=== PATIENT | male | born 1960 | race Caucasian/White ===

== ENCOUNTER 2023-01-16 09:25 | Outpatient (OUT) | payer OTHER, SELFPAY ==
--- NOTE | 2023-01-16 09:44 | US_ITS ---
[address] [address] Patient Name: NEO KEMP MRN: [id number] date: 1960 Sex: M Assigned Patient Location: LAB Current Patient Location: LAB Accession/Order Number: [id number] Exam Date: 01/16/2023 09:45 Report Date: 01/16/2023 16:40 At the request of: LAMAR MAYER Procedure: US venous doppler UE LT EXAMINATION: US venous doppler UE LT HISTORY: Left Swollen Arm, Redness COMPARISON: No relevant comparison available. TECHNIQUE: Grayscale, color and Doppler FINDINGS: Region: Left arm Thrombus: None Flow: Normal Augmentation: Normal Other: The area the patient's redness a small amount of subcutaneous edema is observed US/US venous doppler UE LT IMPRESSION: No deep or superficial vein thrombus in the left arm Mild nonspecific subcutaneous edema in the area of the patient's swelling and redness *Exam performed in accordance with [facility] practice guidelines- Peripheral venous ultrasound, June 27, 2009. Electronically authenticated by: KATY KAY Date: 01/16/2023 16:40
[2023-01-16 10:03] LABS: Basophils Absolute Auto 0.1 10^3/uL (0.0-0.1); Basophils Percent Auto 0.3 % (0.2-2.0); Eosinophils Absolute Auto 0.1 10^3/uL (0.0-0.7); Eosinophils Percent Auto 0.7 % (0.9-7.0); Hematocrit 43.5 % (42.0-54.0); Hemoglobin 14.7 g/dL (14.0-18.0); Immature Granulocytes Abs Auto 0.07 10^3/uL (0.00-0.03); Immature Granulocytes Pct Auto 0.4 % (0.0-0.5); Lymphocytes Absolute Auto 1.8 10^3/uL (1.2-3.8); Lymphocytes Percent Auto 11.7 % (20.5-60.0); Mean Corpuscular HGB Conc 33.8 g/dL (29.9-35.2); Mean Corpuscular Hemoglobin 30.6 pg (25.9-34.0); Mean Corpuscular Volume 90.6 fL (80.0-94.0); Mean Platelet Volume 10.7 fL (9.5-13.5); Monocytes Absolute Auto 1.6 10^3/uL (0.3-0.8); Monocytes Percent Auto 10.3 % (1.7-12.0); Neutrophils Percent Auto 76.6 % (43.0-75.0); Platelet Count 179 10^3/uL (150-450); Red Cell Distribution Width 12.8 % (11.0-15.0); White Blood Count 15.7 10^3/uL (4.0-11.0)
[2023-01-16 11:24] LABS: Alanine Aminotransferase 28 U/L (16-63); Albumin Globulin Ratio 0.9; Albumin Level 3.6 g/dL (3.4-5.0); Alkaline Phosphatase 97 U/L (46-116); Anion Gap 12.7; Aspartate Amino Transferase 8 U/L (15-37); BUN Creatinine Ratio 16.4; Bilirubin Total 1.1 mg/dL (0.2-1.0); Calcium 8.9 mg/dL (8.5-10.1); Carbon Dioxide 25.4 mmol/L (21.0-32.0); Chloride 103 mmol/L (98-107); Estimated GFR (African America >60 (>=60); Estimated GFR (Non-African Ame 57 (>=60); Globulin 4.1 g/dL; Glucose 99 mg/dL (74-106); Potassium 4.1 mmol/L (3.5-5.1); Sodium 137 mmol/L (136-145); Total Protein 7.7 g/dL (6.4-8.2)
== END 2023-01-16 09:26 | disposition home or self-care (01) ==
LOC: LAB 09:30
PROVIDERS: PCP Family Medicine; Visit Provider Family Medicine
DX: M79.89 Other specified soft tissue disorders (principal); L53.9 Erythematous condition, unspecified
CPT/HCPCS: 36415; 80053; 93971

== ENCOUNTER 2025-03-07 10:03 | Outpatient (OUT) | payer MEDICARE, OTHER, SELFPAY ==
--- OUTSIDE RECORDS SUMMARY | 2025-03-07 10:12 | XMS_ITS | CCD ---
Author Organization [facility] Care Team Providers Care Diamond Driller Name Role Phone JAYME ., DR DORON Garcia Admitting Unavailable FAIR ., DR DORON Garcia Attending Unavailable FAIR ., DR DORON Garcia Consulting Unavailable FAIR ., DR DORON Garcia Admitting Unavailable FAIR ., DR DORON Garcia Attending Unavailable FAIR ., DR DORON Garcia Consulting Unavailable AmyMelani Primary Care Physician BRITANY CASSIDY Attending Unavailable JENS DEAL Referring Unavailable Alan Machado Primary Care Physician Giana Abarca Attending Unavailable BobbsArnulfo Referring Unavailable BobbsArnulfo Attending Unavailable BobbsArnulfo Attending Unavailable AmyMelani Attending Unavailable AmyMelani Admitting Unavailable Amy, Melani Mcclendon Attending Unavailable Amy, Melani Mcclendon Admitting Unavailable Amy, Melani Mcclendon Attending Unavailable BobbsArnulfo Attending Unavailable Allergies Allergy ClassificationReported Allergen(s)Allergy TypeDate of OnsetReaction(s) Facility (6 sources)Vancomycin; Translations: [vancomycin]Drug AllergyWeal (disorder) [facility] Medications Current Medications MedicationDrug Class(es)DatesSig (Normalized)Sig (Original)amoxicillin 875 mg / clavulanate 125 mg oral tablet (3 sources)Penicillin-class AntibacterialStart: 02-06-2023 End: 36-49-0571iwlc 1 tablet by mouth every twelve hoursamoxicillin-clavulanate 875 mg-125 mg Tab 1 tab(s), Oral, q12hr for 7 day(s), 14 tab(s), Refill(s) 0, [facility], 174.8, cm, 02/06/23 8:26:00 EST, Height/Length Dosing, 99.9, kg, 02/06/23 8:26:00 EST, Weight Dosing Start Date: 02/06/23 Stop Date: 02/13/23 Status: OrderedStart: 01-19-2023 End: 40-08-7320uama 1 tablet by mouth every twelve hoursAugmentin 875 mg oral tablet = 1 tab(s), Oral, q12hr, X 10 day(s), # 20 tab(s), Refills(s) 0, Ph[facility]: [facility], 174.8, cm, 01/17/23 9:12:00 EDT, Height/Length Dosing, 100.9, kg, 01/17/23 9:12:00 EDT, Weight Dosing Start Date: 01/19/23 Stop Date: 01/29/23 Status: Orderedatorvastatin 20 mg oral tablet (4 sources)HMG-CoA Reductase InhibitorStart: 67-42-2638tzgp 1 tablet by mouth once dailyatorvastatin 20 mg Tab See Instructions, TAKE ONE TABLET BY MOUTH ONCE DAILY, # 30 EA, Refills(s) 11, [facility], 174.8, cm, 02/13/23 7:45:00 EST, Height/Length Dosing, 100.5, kg, 02/13/23 7:45:00 EST, Weight Dosing Start Date: 01/05/24 Status: Ordered Quantity: 30.0 Unit: EA Repeat number: 1Start: 45-83-8905tzna 1 tablet by mouth once dailyatorvastatin 20 mg Tab 20 mg = 1 tab(s), Oral, Daily, # 30 tab(s), Refills(s) 11, [facility]: [facility], 174.8, cm, 12/08/22 8:21:00 EDT, Height/Length Dosing, 102.4, kg, 12/08/22 8:21:00 EDT, Weight Dosing Start Date: 12/08/22 Status: Orderedfidaxomicin 200 mg oral tablet (2 sources)Macrolide AntibacterialStart: 68-11-3755ekdi 1 tablet by mouth twice dailyfidaxomicin 200 mg oral tablet 200 mg = 1 tab(s), Oral, BID, # 20 tab(s), Refills(s) 0, Pharmacy: [facility], 174.8, cm, 02/08/23 11:44:00 EST, Height/Length Dosing, 99.6, kg, 02/08/23 11:44:00 EST, Weight Dosing Start Date: 02/08/23 Status: Orderedmeloxicam 15 mg oral tablet (4 sources)Nonsteroidal Anti-inflammatory DrugStart: 88-40-0457llvw 1 tablet by mouth once dailymeloxicam 15 mg Tab See Instructions, TAKE ONE TABLET BY MOUTH ONCE DAILY, # 30 EA, Refills(s) 7, Pharmacy: [facility], 174.8, cm, 02/13/23 7:45:00 EST, Height/Length Dosing, 100.5, kg, 02/13/23 7:45:00 EST, Weight Dosing Start Date: 01/05/24 Status: Ordered Quantity: 30.0 Unit: EA Repeat number: 1Start: 29-23-7164ohcf 1 tablet by mouth once dailymeloxicam 15 mg Tab 15 mg = 1 tab(s), Oral, Daily, # 30 tab(s), Refills(s) 11, [facility]: [facility], 174.8, cm, 12/08/22 8:21:00 EDT, Height/Length Dosing, 102.4, kg, 12/08/22 8:21:00 EDT, Weight Dosing Start Date: 12/08/22 Status: Ordered metroNIDAZOLE 500 mg oral tablet (2 sources)Nitroimidazole AntimicrobialStart: 02-08-2023 End: 85-99-8006ador 1 tablet by mouth every eight hoursMetroNIDAZOLE 500 mg Tab 500 mg = 1 tab(s), Oral, q8hr, X 10 day(s), # 30 tab(s), Refills(s) 0, Pharmacy: [facility], 174.8, cm, 02/08/23 11:44:00 EST, Height/Length Dosing, 99.6, kg, 02/08/23 11:44:00 EST, Weight Dosing Start Date: 02/08/23 Stop Date: 02/18/23 Status: Ordered Problems Problem ClassificationProblemDateDocumented DateEpisodic/ChronicDiseases of white blood cells (1 source)Leukocytosis; Translations: [Elevated white blood cell count, unspecified]Onset: 80-36-1986QydzyraLshlixbdj of lipid metabolism (2 sources)Hyperlipidemia; Translations: [Hyperlipidemia, unspecified]Onset: 09-50-3764DdxsfqwPrshmujlrv infection (2 sources)Clostridium difficile cnhucul97-48-0725ZescrfgzMpmulibjchmxit (1 source)Pofgpqcutkmdqo10-62-8335IutknhgOmzcc connective tissue disease (1 source)Disorder of bursa; Translations: [Bursopathy, unspecified]Onset: 04-61-8663FbyuluxqCyqfs non-traumatic joint disorders (2 sources)Disorder of ofgqe54-68-2604FixrdqheKuhus nutritional; endocrine; and metabolic disorders (1 source)Obesity; Translations: [Obesity, unspecified]Onset: 20-34-0097Gwxokqi Other skin disorders (3 sources)Swelling of upper yuf03-86-7866ErvpmzcuTtjg and subcutaneous tissue infections (3 sources)Cellulitis; Translations: [Cellulitis of unspecified part of limb] Onset: 90-10-3627GdkqqabbLkovhmain-related disorders (3 sources)Khjhmo22-00-4841OqkslooZrttoih on above:Added secondary to documentation in Social History.Unclassified (6 sources)Patient encounter [id number] Results Test NameValueInterpretationReference RangeFacilityAmbulatory Visit Summaryon 67-46-6459Tqhvhblzgy Visit SummaryAmbulatory Visit Summary NEO KEMP :1960 Visit Date:06/06/2022 Ambulatory Visit Instructions Your Care Team Primary Care Physician - Arnulfo Hancock DO This Is Your Medications List atorvastatin (atorvastatin 20 mg Tab) latanoprost ophthalmic (latanoprost Opth 0.005% Gricelda) meloxicam (meloxicam 15 mg Tab) Procedures Performed None. What to do next Scheduled Follow-Up Appointments Monday. 2025 7:20 AM EST With: Where: [address] [id number] 7:20 AM EDT With: Arnulfo Hancock DO Where: [address] [address]- You Need to Complete the Following CBC w/ Auto Diff, Blood, Routine collect, 02/11/25, Order for future visit, Lab Collect, HLD (hyperlipidemia) Impaired fasting glucose BMI 34.0-34.9,adult Class 1 obesity due to excess caloriesin adult, Not Required, Print Label By Order Location Comprehensive Metabolic Panel, Blood, Routine collect, 02/11/25, Order for future visit, Lab Collect, HLD (hyperlipidemia) Impaired fasting glucose BMI 34.0-34.9,adult Class 1 obesity due to excess calories in adult, Not Required, Print Label By Order Location HgbA1c, Blood, Routine collect, 02/11/25, Order for future visit, Lab Collect, HLD (hyperlipidemia) Impaired fasting glucose BMI 34.0-34.9,adult Class 1 obesity due to excess calories in adult Other obesity due to excess calories Screening for diabe... Lipid Panel, Blood, Routine collect, 02/11/25, Order for future visit, Lab Collect, HLD (hyperlipidemia) Impaired fasting glucose BMI 34.0-34.9,adult Class 1 obesity due to excess calories in adult Screening for hyperlipidemia, Required & Missing, Print La... PSA Screen, Total, Blood, Routine collect, 02/11/25, Order for future visit, Lab Collect, Screeningfor prostate cancer, Required & Missing, Print Label By Order Location Someone Will Contact You Regarding These Appointments [facility] [place] Ambulatory Referral, Referring provider preference, Orthopaedics, [facility]-Dr. Machado would like him to be seen [facility], 02/08/23 12:48:00 EST, Infection of left elbow Medications What How Much When Instructions Changed atorvastatin (atorvastatin 20 mg Tab) See instructions TAKE ONE TABLET BY MOUTH ONCE DAILY Changed meloxicam (meloxicam 15 mg Tab) See instructions TAKE ONE TABLET BY MOUTH ONCE DAILY Unchanged latanoprost ophthalmic (latanoprost Opth 0.005% Gricelda) APPLY ONE DROP TO AFFECTED EYE ONCE A DAY. AT BEDTIME Allergies vancomycin (Hives) Problems Ongoing - Any problem that you are currently receiving treatment for. BMI 34.0-34.9,adult Class 1 obesity due to excess calories in adult Colon cancer screening Glaucoma HLD (hyperlipidemia) Impaired fasting glucose MCFP (current) use of non-steroidal anti-inflammatories (NSAID) Osteoarthritis of left ankle Prostate cancer screening Right ankle pain Screening for diabetes mellitus Screening for hyperlipidemia Patient Survey You may receive a survey via text or e-mail asking about your office visit. Please share your experience with us by completing your survey. We appreciate your feedback and thank you for choosing us for your care. Patient Portal You may access all of your results and other medical record information on our secure patient portal. If you are not signed up for this yet, please contact [facility] at [phone] to get signed up today. Language Information Language assistance services are available as needed. [facility] Medicine Office/Clinic Noteon [id number] Medicine Office/Clinic NoteElizabeth [facility]Clinic Note HPI Staff Pt is presenting for 1 year checkup Health Maintenance: Colonoscopy: none Dexa: none PSA: PSA Scrn Tot.: 2.6 ng/mL (06/26/24 08:42:00) Last Labs: 06/26/24 - does this once a year in june Concerns: none Refills: not sure History of Present Illness Patient is a 65-year-old male with a past medical history of bilateral cataract s/p removal, BL glaucoma, hyperlipidemia, BL osteoarthritis of ankles and feet, and prior cellulitis (~3 years ago) without recurrence who presented today to establish care. Patient reported right ankle pain that began yesterday after working in his yard. Described as soreness without known trauma. He has been taking meloxicam for pain control. Patient reported chronic left ankle pain dating back ~50???55 years due to to prior injury which has been managed conservatively. For arthritis pain management, patient has been on meloxicam 15 mg daily for years, previously prescribed by Dr. Fair. Patient counseled today to use meloxicam PRN for flares and to try acetaminophen first; aware of potential renal/BP effects of chronic NSAID use. As for patient's ophthalmologic concerns, he follows with Dr. Reyes. He continues on latanoprost eye drops, started <1 year ago. Patient reported consistent overeating which is related to his current obesity. He stated he drinksunsweetened iced tea; no sugary beverages. He reported physically active throughout the day but no formal exercise. Labs reviewed from June 2024 showing a normal CBC. Labs also showed an elevated fasting blood glucose. PSA and TSH were within normal limits. Patient has never had colon cancer screening but is interested in getting a referral today. He denied family history of colon cancer, melena, hematochezia, and diarrhea. Patient denied alcohol, tobacco, and illicit drug use. Review of Systems PHQ Score Initial Depression Screen Score: 0 SCORE Pertinent review of systems is addressed in the HPI. Physical Exam Vitals & Measurements T: 36.6 ???C(Temporal Artery) HR: 84(Peripheral) RR: 18 BP: 118/86 SpO2: 97% HT: 69 in HT: 174.8 cm WT: 229.28 lb WT: 104.0 kg BMI: 34.04 General: Alert and oriented, in no acute distress HEENT: - Normocephalic, atraumatic - EOMI, conjunctiva WNL Cardiovascular: Regular rate and rhythm, no murmur/rubs/gallops Respiratory: Lungs clear to auscultation BL without wheezing/rales/rhonchi, normal respiratory effort Abdomen: Soft, nontender, nondistended Neurologic: Grossly intact, normal gait Skin: Warm, dry, intact; no rashes Psych: Normal mood, normal affect Assessment/Plan 1. HLD (hyperlipidemia) (E78.5: Hyperlipidemia, unspecified) Controlled Continue atorvastatin Reassess lipids with annual labs (June 2025). Ordered: CBC w/ Auto Diff Comprehensive Metabolic Panel HgbA1c Lipid Panel 2. Impaired fasting glucose (R73.01: Impaired fasting glucose) Hemoglobin a1c ordered. Ordered: CBC w/ Auto Diff Comprehensive Metabolic Panel HgbA1c Lipid Panel 3. Right ankle pain (M25.571: Pain in right ankle and joints of right foot) Acute; likely OA flare vs overuse injury Soreness started yesterday after increased activity; no swelling, deformity, or trauma reported. Conservative management with ice/heat as needed. Pain control with trial acetaminophen first; may take meloxicam PRN if inadequate relief 30???40 min later. Monitor symptoms; call clinic if worsening or not improving. 4. Osteoarthritis of left ankle (M19.072: Primary osteoarthritis, left ankle and foot) Chronic Continue podiatry follow-up as needed. Same analgesic plan as #3. 5. 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 Transition to PRN use only for significant pain flares. Use acetaminophen as first-line. Continue routine renal function monitoring with annual labs. 6. Glaucoma (H40.9: Unspecified glaucoma) Type unknown On latanoprost; follows with ophthalmology. 7. Prostate cancer screening (Z12.5: Encounter for screening for malignant neoplasm of prostate) PSA ordered Ordered: PSA Screen, Total 8. Colon cancer screening (Z12.11: Encounter for screening for malignant neoplasm of colon) GI referral placed. Ordered: [facility] [place] Internal Ambulatory Referral 9. Screening for hyperlipidemia (Z13.220: Encounter for screening for lipoid disorders) Lipid panel ordered. Ordered: Lipid Panel 10. Screening for diabetes mellitus (Z13.1: Encounter for screening for diabetes mellitus) Hemoglobin a1c ordered. Ordered: HgbA1c 11. BMI 34.0-34.9,adult (Z68.34: Body mass index [BMI] 34.0-34.9, adult) Patient's current BMI is 34.04 kg/m2, while the standard range for individuals aged 18 years old and older is >=18.5 to <25 kg/m2. We discussed the medical benefits of weight (more content not included)...[facility] CenterComment on above:Result Comment: Electronically Signed By: Arnulfo Hancock DO\.br\Date and Time Signed: 02/11/25 08:01 Ann-Marie 06-27-2024 RemindersReminders From: Melani Lazaro To: [facility] - Clinical; Sent: 06/27/2024 08:40:52 EDT Show up: 06/27/2024 08:41:00 EDT Subject: Ambulatory Reminder Due Date/Time: 06/28/2024 08:40:00 EDT BUN (kidney test) was a little elevated. Encourage him to drink more water. otherwise. labs look good Results: Date Result Name Ind Value Ref Range 06/26/2024 8:42 WBC 6.5 E9/L (4.0 - 11.0) 06/26/2024 8:42 RBC 5.0 E12/L (4.3 - 5.9) 06/26/2024 8:42 HGB 15.4 gm/dL (13.5 - 17.5) 06/26/2024 8:42 Hct 45.2 % (37.7 - 49.0) 06/26/2024 8:42 MCV 91.1 fL (80.0 - 100.0) 06/26/2024 8:42 MCH 31.0 pg (27.0 - 34.0) 06/26/2024 8:42 MCHC 34.0 gm/dL (31.4 - 36.0) 06/26/2024 8:42 RDW 13.4 % (10.9 - 14.2) 06/26/2024 8:42 Platelet 171.0 E9/L (150.0 - 500.0) 06/26/2024 8:42 MPV 9.8 fL (6.4 - 10.8) 06/26/2024 8:42 Neutro Auto 51.7 % (36.0 - 75.0) 06/26/2024 8:42 Lymph Auto 31.2 % (14.0 - 50.0) 06/26/2024 8:42 Buchanan Auto 12.3 % (4.0 - 14.0) 06/26/2024 8:42 Eos Auto 4.1 % (0.0 - 8.0) 06/26/2024 8:42 Basophil Auto 0.7 % (0.0 - 2.0) 06/26/2024 8:42 Neutro Absolute 3.3 E9/L (2.0 - 7.5) 06/26/2024 8:42 Lymph Absolute 2.0 E9/L (1.0 - 4.0) 06/26/2024 8:42 Buchanan Absolute 0.8 E9/L (0.2 - 1.0) 06/26/2024 8:42 Eos Absolute 0.3 E9/L (0.0 - 0.5) 06/26/2024 8:42 Basophil Absolute 0.0 E9/L (0.0 - 0.2) 06/26/2024 8:42 Glucose Lvl 107 mg/dL (55 - 199) 06/26/2024 8:42 BUN (H) 29 mg/dL (5 - 21) 06/26/2024 8:42 Creatinine 0.9 mg/dL (0.5 - 1.3) 06/26/2024 8:42 eGFR 95 mL/min/1.73 m2 (>=59 - ) 06/26/2024 8:42 BUN/Creat Ratio (H) 32 (10 - 20) 06/26/2024 8:42 Sodium Lvl 137 mmol/L (135 - 145) 06/26/2024 8:42 Potassium Lvl 4.2 mmol/L (3.5 - 5.3) 06/26/2024 8:42 Chloride 106 mmol/L (101 - 111) 06/26/2024 8:42 CO2 26 mmol/L (21 - 31) 06/26/2024 8:42 AGAP 9 mEq/L (6 - 16) 06/26/2024 8:42 Calcium Lvl 9.2 mg/dL (8.9 - 11.1) 06/26/2024 8:42 Alk Phos 97 Int._Unit/L (21 - 98) 06/26/2024 8:42 ALT 28 Int._Unit/L (6 - 46) 06/26/2024 8:42 AST 20 Int._Unit/L (5 - 43) 06/26/2024 8:42 Total Protein 7.0 gm/dL (6.0 - 7.8) 06/26/2024 8:42 Albumin Lvl 4.2 gm/dL (3.3 - 5.0) 06/26/2024 8:42 Globulin 2.8 gm/dL (1.4 - 4.0) 06/26/2024 8:42 A/G Ratio 1.5 (1.1 - 2.2) 06/26/2024 8:42 Bili Total 0.6 mg/dL (0.0 - 1.1) 06/26/2024 8:42 Chol 123 mg/dL (120 - 200) 06/26/2024 8:42 Trig 125 mg/dL ( - <=149) 06/26/2024 8:42 HDL 36 mg/dL 06/26/2024 8:42 LDL Direct 74 mg/dL ( - <=129) 06/26/2024 8:42 VLDL 25 mg/dL (7 - 40) 06/26/2024 8:42 TSH 1.18 mcIU/mL (0.34 - 5.60) 06/26/2024 8:42 PSA Scrn Tot. 2.6 ng/mL (0.1 - 3.5) From: Kyung Boone M.A. (B - Clinical) To: Melani Lazaro; Sent: 06/27/2024 09:33:37 EDT Show up: 06/27/2024 09:32:00 EDT Subject: RE: Ambulatory Reminder left detailed message (did identify self)[facility] w/ Auto Diffon [id number]/100 WBC (Bld)0.7 %Normal0.0-2.0[facility] HospitalComment on above:Performed By: #### [id number] #### [facility] [address] [place] [address] 28039Tvkfdbopx/Leukocytes Auto (Bld) [Pure # fraction]0.0 E9/LNormal 0.0-0.2FOur Lady of Mercy Hospital - AndersonComment on above:Performed By: #### [id number] #### [facility] [address] [place] [address] 10863Wskkwavatln (Bld) [#/Vol]0.3 E9/LNormal0.0-0.5FOur Lady of Mercy Hospital - AndersonComment on above:Performed By: #### [id number] #### [facility] [address] [place] [address] 43714Zldhmxsbeul/100 WBC (Bld)4.1 %Normal0.0-8.0[facility] HospitalComment on above:Performed By: #### [id number] #### [facility] [address] [place] [address] 76171Hobjwdovxei distribution width (RBC) [Ratio]13.4 %Normal 10.9-14.2FOur Lady of Mercy Hospital - AndersonComment on above:Performed By: #### [id number] #### [facility] [address] [place] [address] 43131Fynovzmchw (Bld) [Volume fraction]45.2 %Ohvvcl20.7-49.0[facility] HospitalComment on above:Performed By: #### [id number] #### [facility] [address] [place] [address] 22861Fumbyfagwu (Bld) [Mass/Vol]15.4 g/wCMhqiyk69.5-17.5FOur Lady of Mercy Hospital - AndersonComment on above:Performed By: #### [id number] #### [facility] [address] [place] [address] 78363Ohqaxnlcaip (Bld) [#/Vol]2.0 E9/LNormal1.0-4.0[facility] HospitalComment on above:Performed By: #### [id number] #### [facility] [address] [place] [address] 53837Zfwrpwmgwvp/100 WBC (Bld)31.2 %Itwkvd87.0-50.0[facility] HospitalComment on above:Performed By: #### [id number] #### [facility] [address] [place] [address] 12907NGK (RBC) [Entitic mass]31.0 ibPgjpln57.0-34.0[facility] HospitalComment on above:Performed By: #### [id number] #### [facility] [address] [place] [address] 38284CUQP (RBC) [Mass/Vol]34.0 g/nKXhjiik12.4-36.0[facility] HospitalComment on above:Performed By: #### [id number] #### [facility] [address] [place] [address] 02418NEA (RBC) [Entitic vol]91.1 xXVaopee18.0-100.0[facility] HospitalComment on above:Performed By: #### [id number] #### [facility] [address] [place] [address] 00209Xyrclpnrm (Bld) [#/Vol]0.8 E9/LNormal0.2-1.0[facility] HospitalComment on above:Performed By: #### [id number] #### [facility] [address] [place] [address] 40966Xzgsqweuugb (Bld) [#/Vol]3.3 E9/LNormal2.0-7.5FOur Lady of Mercy Hospital - AndersonComment on above:Performed By: #### [id number] #### [facility] [address] [place] [address] 74973Wvarqkkugmx/100 WBC (Bld)51.7 %Eqrvet42.0-75.0[facility] HospitalComment on above:Performed By: #### [id number] #### [facility] [address] [place] [address] 98602Cgmqzaqv mean volume (Bld) [Entitic vol]9.8 fLNormal6.4-10.8 [facility] HospitalComment on above:Performed By: #### [id number] #### [facility] [address] [place] [address] 44549Mxsxagycx (Bld) [#/Vol]171.0 E9/KHahrzw702.0-500.0[facility] HospitalComment on above:Performed By: #### [id number] #### [facility] [address] [place] [address] 56349NAC (Bld) [#/Vol]5.0 E12/LNormal4.3-5.9[facility] HospitalComment on above:Performed By: #### [id number] #### [facility] [address] [place] [address] 51853NXV corrected for nucl RBC Auto (Bld) [#/Vol]6.5 E9/LNormal 4.0-11.0[facility] HospitalComment on above:Performed By: #### [id number] #### [facility] [address] [place] [address] 94186DSSRGGEZPGohgjmh By: SYSTEM SYSTEM on 50-15-7434Jouegcj [Mass/Vol]4.2 g/dLNormal3.3 - 5.0 gm/dLRemisol ChemAlbumin/Globulin [Mass ratio] 1.5 {ratio}Normal1.1 - 2.2Remisol ChemALP [Catalytic activity/Vol]97 [iU]/d Ufgjzk15 - 98 Int._Unit/LRemisol ChemALT No additional P-5'-P [Catalytic activity/Vol]28 [iU]/dNormal6 - 46 Int._Unit/LRemisol ChemAnion gap [Moles/Vol]9 mmol/LNormal6 - 16 mEq/LRemisol ChemAST [Catalytic activity/Vol]20 [iU]/dNormal 5 - 43 Int._Unit/LRemisol ChemBilirubin [Mass/Vol]0.6 mg/dLNormal0.0 - 1.1 mg/dL Remisol ChemCalcium [Mass/Vol]9.2 mg/dLNormal8.9 - 11.1 mg/dLRemisol Chem Chloride [Moles/Vol]106 mmol/UAmspat144 - 111 mmol/LRemisol ChemCholesterol [Mass/Vol]123 mg/uFJhhfik734 - 200 mg/dLRemisol ChemCholesterol in HDL [Mass/Vol]36 mg/dLInvalid Interpretation CodeRemisol ChemComment on above:Result Comment: '>= 60 LOW RISK' '<= 40 HIGH RISK'Cholesterol in LDL [Mass/Vol]74 mg/dLNormal<=129mg/dLRemisol ChemCholesterol in VLDL [Mass/Vol]25 mg/dLNormal7 - 40 mg/dLRemisol ChemCO2 [Moles/Vol]26 mmol/NFlhokz15 - 31 mmol/LRemisol ChemCreatinine [Mass/Vol]0.9 mg/dLNormal0.5 - 1.3 mg/dLRemisol VstktDUS45 mL/min/1.73 g1Zhwkml>=59mL/min/1.73 p5Whbgreb ChemGlobulin (S) [Mass/Vol]2.8 g/dLNormal1.4 - 4.0 gm/dLRemisol Chem Glucose [Mass/Vol]107 mg/qBCgeuve14 - 199 mg/dLRemisol ChemPotassium [Moles/Vol] 4.2 mmol/LNormal3.5 - 5.3 mmol/LRemisol ChemProstate specific Ag [Mass/Vol]2.6 ng/mLNormal0.1 - 3.5 ng/mLRemisol ChemComment on above:Interpretive Data: The concentration of PSA determined by different manufacturers can vary due to di fferences in assay methods and reagent specificity. Values obtained from different assay methods cannot be used interchangeably. The methodology used for this result was chemiluminescence using [employer]'s Access Hybritech PSA reagent.Protein [Mass/Vol]7.0 g/dLNormal6.0 - 7.8 gm/dLRemisol ChemSodium [Moles/Vol]137 mmol/OUfiktf244 - 145 mmol/LRemisol ChemTriglyceride [Mass/Vol] 125 mg/dLNormal<=149mg/dLRemisol ChemTSH Qn1.18 m[IU]/LNormal0.34 - 5.60 mcIU/mL Remisol ChemUrea nitrogen [Mass/Vol]29 mg/dLHigh5 - 21 mg/dLRemisol ChemUrea nitrogen/Creatinine [Mass ratio]32 mg/nyAkih58 - 20Remisol ChemCMPon 06-26-2024 Albumin [Mass/Vol]4.2 g/dLNormal3.3-5.0[facility] HospitalComment on above:Performed By: #### [id number] #### [facility] [address] [place], [place] [address]Okhghxc/Globulin (S) [Mass conc ratio]1.7Xuhufk4.1-2.2FOur Lady of Mercy Hospital - AndersonComment on above:Performed By: #### [id number] #### [facility] [address] [place], [place] [address]HGE [Catalytic activity/Vol]97 Int._Unit/GZtreyy04-17WlfpedBrown Memorial HospitalComment on above:Performed By: #### [id number] #### [facility] [address] [place], [place] [address]EIZ No additional P-5'-P [Catalytic activity/Vol]28 Int._Unit/L Normal6-46[facility] HospitalComment on above:Performed By: #### [id number] #### [facility] [address] [place], [place] [address]Edbrj gap [Moles/Vol]9 mmol/LNormal6-16[facility] HospitalComment on above:Performed By: #### [id number] #### [facility] [address] [place], [place] [address]XSL [Catalytic activity/Vol]20 Int._Unit/LNormal5-43Brown Memorial HospitalComment on above:Performed By: #### [id number] #### [facility] [address], [place] [address]Rltgnjzjk [Mass/Vol]0.6 mg/dLNormal0.0-1.1FOur Lady of Mercy Hospital - AndersonComment on above:Performed By: #### [id number] #### [facility] [address], [place] [address]Koeshxq [Mass/Vol]9.2 mg/dLNormal8.9-11.1FOur Lady of Mercy Hospital - AndersonComment on above:Performed By: #### [id number] #### [facility] [address], [place] [address]Pjvdiyxu [Moles/Vol]106 mmol/DMwbupr707-611WiaaxpBrown Memorial HospitalComment on above:Performed By: #### [id number] #### [facility] [address], [place] [address]EF2 [Moles/Vol]26 mmol/FYmqgig87-00KmscelBrown Memorial Hospital Comment on above:Performed By: #### [id number] #### [facility] [address], [place] [address]Yaiyhiwwog [Mass/Vol]0.9 mg/dLNormal0.5-1.3FOur Lady of Mercy Hospital - AndersonComment on above:Performed By: #### [id number] #### [facility] [address], [place] [address]Nveawbac (S) [Mass/Vol]2.8 g/dLNormal1.4-4.0Brown Memorial HospitalComment on above:Performed By: #### [id number] #### [facility] [address], [place] [address]Edrxerj [Mass/Vol]107 mg/pZAepswj15-976YmbtmtBrown Memorial HospitalComment on above:Performed By: #### [id number] #### [facility] [address] [place] [address], [place] [address]Trqnppzsv [Moles/Vol]4.2 mmol/LNormal3.5-5.3FOur Lady of Mercy Hospital - AndersonComment on above:Performed By: #### [id number] #### [facility] [address], [place] [address]Ooopnae [Mass/Vol]7.0 g/dLNormal6.0-7.8Brown Memorial HospitalComment on above:Performed By: #### [id number] #### [facility] [address] [place] [address]Cjuxgt [Moles/Vol]137 mmol/UEnrrsm941-583PiucgnBrown Memorial HospitalComment on above:Performed By: #### [id number] #### [facility] [address] [place] [address]Wnqu nitrogen [Mass/Vol]29 mg/dLHigh5-21Brown Memorial HospitalComment on above:Performed By: #### [id number] #### [facility] [address], [place] [address]Tahn nitrogen/Creatinine [Mass ratio]32 No ZutnvRbyh71-10YpapqxBrown Memorial HospitalComment on above:Performed By: #### [id number] #### [facility] [address], [place] [address]VPPSVZSVGXGeidemj By: SYSTEM SYSTEM on 81-41-5279Lwvkvcroi/100 WBC (Bld)0.7 %Normal0.0 - 2.0 %Remisol HemeBasophils/Leukocytes Auto (Bld) [Pure # fraction]0.0 E9/LNormal0.0 - 0.2 E9/LRemisol HemeEosinophils (Bld) [#/Vol]0.3 E9/LNormal0.0 - 0.5 E9/LRemisol HemeEosinophils/100 WBC (Bld)4.1 %Normal0.0 - 8.0 %Remisol HemeErythrocyte distribution width (RBC) [Ratio]13.4 %Lcnxcz69.9 - 14.2 %Remisol HemeHematocrit (Bld) [Volume fraction]45.2 %Blzcuv91.7 - 49.0 % Remisol HemeHemoglobin (Bld) [Mass/Vol]15.4 g/pVDvvrna99.5 - 17.5 gm/dLRemisol HemeLymphocytes (Bld) [#/Vol]2.0 E9/LNormal1.0 - 4.0 E9/LRemisol Heme Lymphocytes/100 WBC (Bld)31.2 %Lhwrwu51.0 - 50.0 %Remisol HemeMCH (RBC) [Entitic mass]31.0 zuTxewqc67.0 - 34.0 pgRemisol HemeMCHC (RBC) [Mass/Vol]34.0 g/dL Gyfzdk06.4 - 36.0 gm/dLRemisol HemeMCV (RBC) [Entitic vol]91.1 aKNohtzr43.0 - 100.0 fLRemisol HemeMonocytes (Bld) [#/Vol]0.8 E9/LNormal0.2 - 1.0 E9/LRemisol HemeMonocytes/100 WBC (Bld)12.3 %Normal4.0 - 14.0 %Remisol HemeNeutrophils (Bld) [#/Vol]3.3 E9/LNormal2.0 - 7.5 E9/LRemisol HemeNeutrophils/100 WBC (Bld)51.7 % Lnknob15.0 - 75.0 %Remisol HemePlatelet mean volume (Bld) [Entitic vol]9.8 fL Normal6.4 - 10.8 fLRemisol HemePlatelets (Bld) [#/Vol]171.0 E9/LPgbogz372.0 - 500.0 E9/LRemisol HemeRBC (Bld) [#/Vol]5.0 E12/LNormal4.3 - 5.9 E12/LRemisol HemeWBC corrected for nucl RBC Auto (Bld) [#/Vol]6.5 E9/LNormal4.0 - 11.0 E9/L Remisol HemeLipid Panelon 84-54-9902Lpbylexzlef [Mass/Vol]123 mg/oNFqefpu022-196 [facility] HospitalComment on above:Performed By: #### [id number] #### [facility] [address] [place], [place] [address]Qpybailpsma in HDL [Mass/Vol]36 mg/dLInvalid Interpretation CodeBrown Memorial HospitalComment on above:Result Comment: '>= 60 LOW RISK' '<= 40 HIGH RISK'Performed By: #### [id number] #### [facility] [address] [place] [address], [place] [address]Bsenxmbillp in LDL [Mass/Vol]74 mg/dLNormal<=129Brown Memorial HospitalComment on above:Performed By: #### [id number] #### [facility] [address] [place], [place] [address]Wzxsysmwgob in VLDL [Mass/Vol]25 mg/dLNormal7-40Brown Memorial HospitalComment on above:Performed By: #### [id number] #### [facility] [address] [place] [address], [place] [address]Lppitvomfkin [Mass/Vol]125 mg/dLNormal<=149Brown Memorial HospitalComment on above:Performed By: #### [id number] #### [facility] [address] [place] [address], [place] [address]TPG Screen, Totalon 49-73-1690Eshhjnbe specific Ag [Mass/Vol] 2.6 ng/mLNormal0.1-3.5FOur Lady of Mercy Hospital - AndersonComment on above:Result Comment: The concentration of PSA determined by different manufacturers can vary due to differences in assay methods and reagent specificity. Values obtained from different assay methods cannot be used interchangeably. The methodology used for this result was chemiluminescence using [employer]'s Access Hybritech PSA reagent.Performed By: #### [id number] #### [facility] [address], [place] [address]RGZat [id number] Qn1.18 m[IU]/LNormal0.34-5.60Brown Memorial HospitalComment on above:Performed By: #### [id number] #### [facility] [address], [place] [address]nHWVrz 2626eHUS37 mL/min/1.73 d2Tcwwbs>=59Brown Memorial HospitalComment on above:Performed By: #### [id number] #### [facility] [address] [place] [address], [place] [address]QIXMUTJKRYMdlicjo By: SYSTEM SYSTEM on 25-58-1014Raprkgdml/100 WBC (Bld)0.5 %Normal0.0 - 2.0 %[facility] HemeAutoSSBasophils/Leukocytes Auto (Bld) [Pure # fraction]0.0 E9/LNormal0.0 - 0.2 E9/LFTMC HemeAutoSSEosinophils/100 WBC (Bld)3.1 %Normal0.0 - 8.0 %[facility] HemeAutoSSEosinophils/Leukocytes Auto (Bld) [Pure # fraction]0.3 E9/LNormal0.0 - 0.5 E9/LFTMC HemeAutoSSLymphocytes/100 WBC (Bld)16.9 %Zamcwl01.0 - 50.0 %[facility] HemeAutoSSLymphocytes/Leukocytes Auto (Bld) [Pure # fraction]1.6 E9/LNormal1.0 - 4.0 E9/LFT[facility] HemeAutoSSMonocytes/100 WBC (Bld)11.8 %Normal4.0 - 14.0 %[facility] HemeAutoSSMonocytes/Leukocytes Auto (Bld) [Pure # fraction]1.1 E9/LHigh0.2 - 1.0 E9/LFTMC HemeAutoSSNeutrophils/100 WBC (Bld)67.7 %Bztgxg85.0 - 75.0 %[facility] HemeAutoSSNeutrophils/Leukocytes Auto (Bld) [Pure # fraction]6.5 E9/LNormal2.0 - 7.5 E9/LFTMC HemeAutoSSHEMATOLOGYOrdered By: Skylar Avery on 69-87-7051Wctlewbgotl distribution width (RBC) [Ratio]13.2 % Tyrcgr47.9 - 14.2 %FT HemeAutoSSHematocrit (Bld) [Volume fraction]43.9 %Normal 37.7 - 49.0 %[facility] HemeAutoSSHemoglobin (Bld) [Mass/Vol]15.0 g/jOWosrnb64.5 - 17.5 gm/dLFTMC HemeAutoSSMCH (RBC) [Entitic mass]30.6 mwNomvzf07.0 - 34.0 pgFTMC HemeAutoSSMCHC (RBC) [Mass/Vol]34.1 g/hKLfdzzy60.4 - 36.0 gm/dLFTMC HemeAutoSS MCV (RBC) [Entitic vol]89.6 lFSwodmy16.0 - 100.0 fLFTMC HemeAutoSSPlatelet mean volume (Bld) [Entitic vol]9.5 fLNormal6.4 - 10.8 fLFTMC HemeAutoSSPlatelets (Bld) [#/Vol]212.0 E9/DXozbdy436.0 - 500.0 E9/LFT[facility] HemeAutoSSRBC (Bld) [#/Vol] 4.9 E12/LNormal4.3 - 5.9 E12/LFTMC HemeAutoSSWBC corrected for nucl RBC Auto (Bld) [#/Vol]9.5 E9/LNormal4.0 - 11.0 E9/L[facility] HemeAutoSSCHEMISTRYOrdered By: SYSTEM SYSTEM on 49-76-5896Hibua gap [Moles/Vol]13 mmol/LNormal6 - 16 mEq/LFT[facility] RemisolCalcium [Mass/Vol]8.9 mg/dLNormal8.9 - 11.1 mg/dLFTMC RemisolChloride [Moles/Vol]108 mmol/NSkpmbk324 - 111 mmol/LFT[facility] RemisolCO2 [Moles/Vol]20 mmol/L Low21 - 31 mmol/LFT[facility] RemisolCreatinine [Mass/Vol]1.1 mg/dLNormal0.5 - 1.3 mg/dL FT RemisolGFR/1.73 sq M.predicted among non-blacks MDRD (S/P/Bld) [Vol rate/Area]75 mL/min/1.73 n2Efldth>=59mL/min/1.73 m2FT Chem SComment on above: Interpretive Data: Chronic kidney disease could be indicated at eGFR's of less than 60 mL/min/1.73m2. Kidney failure is indicated at less than 15 mL/min/1.73m2.Glucose [Mass/Vol]101 mg/jGXbcwgd13 - 199 mg/dLFTMC RemisolComment on above:Interpretive Data: If this glucose result represents a fasting glucose, interpretation should referto the following reference range: 55-99 mg/dLLactate [Mass/Vol]1.2 mmol/LNormal0.5 - 2.2 mmol/LFT[facility] RemisolPotassium [Moles/Vol]3.9 mmol/LNormal3.5 - 5.3 mmol/LFT[facility] RemisolSodium [Moles/Vol]137 mmol/HBxetqt550 - 145 mmol/LFT[facility] RemisolUrea nitrogen [Mass/Vol]21 mg/dLNormal5 - 21 mg/dLFT[facility] RemisolUrea nitrogen/Creatinine [Mass ratio]19 mg/cuFjveua98 - 20 [facility] RemisolHEMATOLOGYOrdered By: SYSTEM SYSTEM on 64-55-1891Ixlzgludv/100 WBC (Bld)0.4 %Normal0.0 - 2.0 %[facility] HemeAutoSSBasophils/Leukocytes Auto (Bld) [Pure # fraction]0.0 E9/LNormal0.0 - 0.2 E9/LFT[facility] HemeAutoSSEosinophils/100 WBC (Bld) 0.9 %Normal0.0 - 8.0 %[facility] HemeAutoSSEosinophils/Leukocytes Auto (Bld) [Pure # fraction]0.1 E9/LNormal0.0 - 0.5 E9/LFT[facility] HemeAutoSSLymphocytes/100 WBC (Bld) 12.6 %Low14.0 - 50.0 %[facility] HemeAutoSSLymphocytes/Leukocytes Auto (Bld) [Pure # fraction]1.6 E9/LNormal1.0 - 4.0 E9/L[facility] HemeAutoSSMonocytes/100 WBC (Bld)10.5 %Normal4.0 - 14.0 %[facility] HemeAutoSSMonocytes/Leukocytes Auto (Bld) [Pure # fraction]1.3 E9/LHigh0.2 - 1.0 E9/L[facility] HemeAutoSSNeutrophils/100 WBC (Bld)75.6 %High36.0 - 75.0 %[facility] HemeAutoSSNeutrophils/Leukocytes Auto (Bld) [Pure # fraction]9.7 E9/LHigh2.0 - 7.5 E9/LFT[facility] HemeAutoSSHEMATOLOGYOrdered By: Mary Miller on 39-57-1310Dedokibltkz distribution width (RBC) [Ratio]13.1 %Bloccm41.9 - 14.2 %[facility] HemeAutoSSHematocrit (Bld) [Volume fraction]43.4 %Mzevab20.7 - 49.0 %[facility] HemeAutoSSHemoglobin (Bld) [Mass/Vol]14.9 g/dWUepqvi61.5 - 17.5 gm/dL [facility] HemeAutoSSMCH (RBC) [Entitic mass]30.5 ktAcpkrn73.0 - 34.0 pgFTMC HemeAutoSSMCHC (RBC) [Mass/Vol]34.2 g/cSPvbqvo74.4 - 36.0 gm/dLFTMC HemeAutoSS MCV (RBC) [Entitic vol]89.2 nRDwkvyl97.0 - 100.0 fLFTMC HemeAutoSSPlatelet mean volume (Bld) [Entitic vol]9.1 fLNormal6.4 - 10.8 fLFT[facility] HemeAutoSSPlatelets (Bld) [#/Vol]168.0 E9/ZScxyhp232.0 - 500.0 E9/L[facility] HemeAutoSSRBC (Bld) [#/Vol] 4.9 E12/LNormal4.3 - 5.9 E12/L[facility] HemeAutoSSWBC corrected for nucl RBC Auto (Bld) [#/Vol]12.8 E9/LHigh4.0 - 11.0 E9/L[facility] HemeAutoSSNo Panel Information Ordered By: ANGPROCESSSERVER MICROBIOLOGY on 69-51-3849Nwrnk Culture CharcoalNo growth at 2 days. Final to follow at 7 days.[facility] LimaBlood Culture CharcoalNo growth at 2 days. Final to follow at 7 days.[facility]HE[facility]IR CBC AUTO DIFFon [id number] #0.0 103/ulNormal 0.0-0.1The [facility] CenterComment on above:Performed By: #### HFPFCBC #### [facility] [address] [address] [address] Albino MontagueBasophils/100 WBC (Bld)0.6 %Normal0.2-2.0The [facility] Comment on above:Performed By: #### HFPFCBC #### [facility] [address] [place] [address] Dr. Albino Morgan #0.3 103/ulNormal0.0-0.7The [facility] CenterComment on above: Performed By: #### HFPFCBC #### [facility] [address] [address] [address] Albino Annaosinophils/100 WBC (Bld)4.5 %Normal0.9-7.0[facility] Comment on above:Performed By: #### HFPFCBC #### [facility] [address] [place] [address] Dr. Albino Annarythrocyte distribution width (RBC) [Ratio]12.6 %Ftpigk45.0-15.0 The [facility] CenterComment on above:Performed By: #### HFPFCBC #### [facility] [address] [place] [address] Dr. Albino MontagueHematocrit (Bld) [Volume fraction]46.4 %Hiftnr96.0-54.0The [facility] CenterComment on above:Performed By: #### HFPFCBC #### [facility] [address] [place] [address] Dr. Albino MontagueHemoglobin (Bld) [Mass/Vol]15.9 g/zDJcygkm01.0-18.0The [facility] CenterComment on above:Performed By: #### HFPFCBC #### [facility] [address] [place] [address] Dr. Albino Yang #0.02 10e3/ulNormal0.00-0.03The [facility] CenterComment on above:Performed By: #### HFPFCBC #### [facility] [address] [place] [address] Dr. Albino Yang %0.3 %Normal0.0-0.5The [facility] CenterComment on above: Performed By: #### HFPFCBC #### [facility] [address] [place] [address] Dr. Albino Aldana #1.9 103/ulNormal1.2-3.8The [facility] CenterComment on above:Performed By: #### ALECFCBC #### [facility] [address] [place] [address] Dr. Albino Patelhocytes/100 WBC (Bld)29.1 %Vcuast17.5-60.0The [facility] CenterComment on above:Performed By: #### ALECFCBC #### [facility] [address] [place] [address] Dr. Albino Foster (RBC) [Entitic mass]30.3 jvCjnsni87.9-34.0The [facility] CenterComment on above:Performed By: #### HFPFCBC #### [facility] [address] [place] [address] Dr. Albino Campos (RBC) [Mass/Vol]34.3 g/jKTdnscc16.9-35.2The [facility] CenterComment on above:Performed By: #### HFPFCBC #### [facility] [address] [place] [address] Dr. Albino Irving (RBC) [Entitic vol]88.4 nLQpgqqz46.0-94.0The [facility] CenterComment on above:Performed By: #### HFPFCBC #### [facility] [address] [place] [address] Dr. Albino Farnsworth #0.7 103/ulNormal0.3-0.8The [facility] CenterComment on above:Performed By: #### HFPFCBC #### [facility] [address] [place] [address] Dr. Albino Brinkocytes/100 WBC (Bld)11.0 %Normal1.7-12.0The [facility] Comment on above:Performed By: #### HFPFCBC #### [facility] [address] [place] [address] Dr. Albino Roth #3.5 103/ulNormal1.4-6.5The [facility] HospitalComment on above:Performed By: #### HFPFCBC #### [facility] [address] [place] [address] Dr. Albino Montesutrophils/100 WBC (Bld)54.5 %Tgugek29.0-75.0The [facility] CenterComment on above:Performed By: #### HFPFCBC #### [facility] [address] [place] [address] Dr. Albino Ramirez mean volume (Bld) [Entitic vol]10.6 fLNormal9.5-13.5The [facility] CenterComment on above:Performed By: #### HFPFCBC #### [facility] [address] [place] [address] Dr. Albino MontaguePLT205 103/aoHkygro508-353Bkg [facility] CenterComment on above: Performed By: #### HFPFCBC #### [facility] [address] [place] [address] Dr. Albino MontagueRBC5.25 106/ulNormal4.70-6.10The [facility] CenterComment on above:Performed By: #### HFPFCBC #### [facility] [address] [place] [address] Dr. Albino MontagueWBC6.4 103/ulNormal4.0-11.0The [facility] CenterComment on above: Performed By: #### HFPFCBC #### [facility] [address] [address] [address] Albino FIELD GLYCOHEMOGLOBIN A1Con 42-40-8558Ygnqqar [Mass/Vol]105 mg/dLNormalThe [facility] CenterComment on above:Performed By: #### [id number] #### [facility] [address] [address] [address] Albino MontagueHbA1c (Bld) [Mass fraction]5.3 %Normal4.5-6.2The [facility] CenterComment on above:Performed By: #### [id number] #### [facility] [address] [address] [address] Albino DickinsonIR PROFILE (MALE)on 12-59-8988Ibylpwh [Mass/Vol]4.0 g/dL Normal3.4-5.0The [facility] CenterComment on above:Performed By: #### HFPFM #### [facility] [address] [place] [address] Dr. Albino MontagueAlbumin/Globulin [Mass ratio]1.3 {ratio}NormalThe [facility] CenterComment on above:Performed By: #### HFPFM #### [facility] [address] [place] [address] Dr. Albino Huffman [Catalytic activity/Vol]104 U/QWydezy32-563Cqg [facility] CenterComment on above:Performed By: #### HFPFM #### [facility] [address] [place] [address] Dr. Albino Dan [Catalytic activity/Vol]36 U/THetdoi03-15Mnr [facility] CenterComment on above:Performed By: #### HFPFM #### [facility] [address] [place] [address] Dr. Albino Valentin [Catalytic activity/Vol]22 U/DAldllo41-82Wnp [facility] on above:Performed By: #### HFPFM #### [facility] [address] [place] [address] Dr. Albino MontagueBilirubin [Mass/Vol]0.7 mg/dLNormal0.2-1.0The [facility] Comment on above:Performed By: #### HFPFM #### [facility] [address] [address] [address] Albino MontagueCalcium [Mass/Vol]9.0 mg/dLNormal8.5-10.1The [facility] Comment on above:Performed By: #### HFPFM #### [facility] [address] [address] [address] Albino MontagueChloride [Moles/Vol]105 mmol/RTvnswp56-134Bpx [facility] Comment on above:Performed By: #### HFPFM #### [facility] [address] [address] [address] Albino MontagueCHOL-HDL RATIO NORMSSumma HealthComment on above:Result Comment: 3.3 - 4.4 LOW RISK 4.4 - 7.1 AVERAGE RISK 7.1 - 11.0 MODERATE RISK >11.0 HIGH RISKPerformed By: #### HFPFM #### [facility] [address] [address] [address] Albino Nettlesesterol [Mass/Vol]118 mg/dLNormal<=200[facility] Comment on above:Performed By: #### HFPFM #### [facility] [address] [address] [address] Albino MontagueCholesterol in HDL [Mass/Vol]35 mg/dLCritically nog60-78YziMercy Health Perrysburg HospitalComment on above:Performed By: #### HFPFM #### [facility] [address] [address] [address] Albino MontagueCholesterol in LDL [Mass/Vol]52.6 mg/dLWright-Patterson Medical CenterComment on above:Performed By: #### HFPFM #### [facility] [address] [place] [address] Dr. Albino Nettlesesterramón.total/Cholesterol in HDL [Mass ratio]3.4 {ratio} NormalMercy Health Perrysburg HospitalComment on above:Performed By: #### HFPFM #### [facility] [address] [address] [address] Albino MontagueCO2 [Moles/Vol]25.5 mmol/JUxhxfz91.0-32.0[facility] Comment on above:Performed By: #### HFPFM #### [facility] [address] [place] [address] Dr. Albino MontagueCreatinine [Mass/Vol]1.02 mg/dLNormal0.70-1.30[facility] HospitalComment on above:Performed By: #### HFPFM #### [facility] [address] [address] [address] Albino MontagueGlobulin (S) [Mass/Vol]3.2 g/dLWright-Patterson Medical CenterComment on above:Performed By: #### HFPFM #### [facility] [address] [place] [address] Dr. Albino MontagueGlucose [Mass/Vol]102 mg/uCKtfvtq91-050BlrMercy Health [facility] Hospital Comment on above:Performed By: #### HFPFM #### [facility] [address] [place] [address] Dr. Albino MontagueHDL NORMAL> or = 60 mg/dl - LOW CARDIOVASCULAR RISK <40 mg/dl - HIGH CARDIOVASCULAR RISKWright-Patterson Medical CenterComment on above:Performed By: #### HFPFM #### [facility] [address] [place] [address] Dr. Albino MontagueLDL CALC NORMALSEE BELOWWright-Patterson Medical CenterComment on above:Result Comment: <100 mg/dl OPTIMAL 100 - 129 mg/dl NEAR OR ABOVE OPTIMAL 130 - 159 mg/dl BORDERLINE HIGH 160 - 189 mg/dl HIGH >190 mg/dl VERY HIGH Performed By: #### HFPFM #### [facility] [address] [place] [address] Dr. Albino MontaguePotassium [Moles/Vol]4.5 mmol/LNormal3.5-5.1[facility] Comment on above:Performed By: #### HFPFM #### [facility] [address] [place] [address] Dr. Albino MontagueProtein [Mass/Vol]7.2 g/dLNormal6.4-8.2The [facility] Comment on above:Performed By: #### HFPFM #### [facility] [address] [place] [address] Dr. Albino Esquiveldium [Moles/Vol]140 mmol/CMwdazt064-725Qcr [facility] Comment on above:Performed By: #### HFPFM #### [facility] [address] [place] [address] Dr. Albino MontagueTriglyceride [Mass/Vol]152 mg/dLCritically high<=150The [facility] CenterComment on above:Performed By: #### HFPFM #### [facility] [address] [place] [address] Dr. Albino MontagueTSH0.890 uIU/mLNormal0.358-3.740The [facility] CenterComment on above:Performed By: #### HFPFM #### [facility] [address] [place] [address] Dr. Albino Moctezuma nitrogen [Mass/Vol]23.0 mg/dLCritically high7.0-18.0The [facility] CenterComment on above:Performed By: #### HFPFM #### [facility] [address] [place] [address] Dr. Albino Moctezuma nitrogen/Creatinine [Mass ratio]22.5 mg/mgNoSelect Medical Specialty Hospital - TrumbullComment on above:Performed By: #### HFPFM #### [facility] [address] [place] [address] Dr. Albino MontagueVLDL CALC30.4 mg/dLNoSelect Medical Specialty Hospital - TrumbullComment on above: Performed By: #### HFPFM #### [facility] [address] [place] [address] Dr. Albino Ellison FAIR CBC AUTO DIFFon 53-48-1333FOEV #0.1 103/ulNormal 0.0-0.1The [facility] CenterComment on above:Performed By: #### HFPFCBC #### [facility] [address] [place] [address] Dr. Yilan ChangBasophils/100 WBC (Bld)0.7 %Normal0.2-2.0The [facility] Comment on above:Performed By: #### HFPFCBC #### [facility] [address] [place] [address] Dr. Albino Morgan #0.3 103/ulNormal0.0-0.7The [facility] CenterComment on above: Performed By: #### HFPFCBC #### [facility] [address] [place] [address] Dr. Albino Annaosinophils/100 WBC (Bld)4.1 %Normal0.9-7.0The [facility] Comment on above:Performed By: #### DONOVANBC #### [facility] [address] [place] [address] Dr. Albino Annarythrocyte distribution width (RBC) [Ratio]12.4 %Iphxot79.0-15.0 The [facility] CenterComment on above:Performed By: #### DONOVANBC #### [facility] [address] [place] [address] Dr. Albino MontagueHematocrit (Bld) [Volume fraction]46.2 %Iyvwml62.0-54.0The [facility] CenterComment on above:Performed By: #### DONOVANBC #### [facility] [address] [place] [address] Dr. Albino MontagueHemoglobin (Bld) [Mass/Vol]15.5 g/wFSvkkyd97.0-18.0The [facility] CenterComment on above:Performed By: #### HFPFCBC #### [facility] [address] [place] [address] Dr. Albino Yang #0.02 10e3/ulNormal0.00-0.03The [facility] CenterComment on above:Performed By: #### HFPFCBC #### [facility] [address] [place] [address] Dr. Albino Yang %0.3 %Normal0.0-0.5The [facility] CenterComment on above: Performed By: #### HFPFCBC #### [facility] [address] [place] [address] Dr. Albino Aldana #2.1 103/ulNormal1.2-3.8The [facility] [facility]wood [facility] CenterComment on above:Performed By: #### HFPFCBC #### [facility] [address] [place] [address] Dr. Albino Rousemphocytes/100 WBC (Bld)28.8 %Egmisw01.5-60.0The [facility] HospitalComment on above:Performed By: #### HFPFCBC #### [facility] [address] [place] [address] Dr. Albino Foster (RBC) [Entitic mass]30.4 jbGgekdi26.9-34.0The [facility] CenterComment on above:Performed By: #### HFPFCBC #### [facility] [address] [place] [address] Dr. Albino Campos (RBC) [Mass/Vol]33.5 g/kYUtvesg99.9-35.2The [facility] CenterComment on above:Performed By: #### HFPFCBC #### [facility] [address] [place] [address] Dr. Albino Irving (RBC) [Entitic vol]90.6 wKSshrkz56.0-94.0The [facility] CenterComment on above:Performed By: #### HFPFCBC #### [facility] [address] [place] [address] Dr. Albino Farnsworth #0.8 103/ulNormal0.3-0.8The [facility] CenterComment on above:Performed By: #### HFPFCBC #### [facility] [address] [place] [address] Dr. Albino Brinkocytes/100 WBC (Bld)10.7 %Normal1.7-12.0The [facility] Comment on above:Performed By: #### HFPFCBC #### [facility] [address] [place] [address] Dr. Yilan ChangNEUT #4.0 103/ulNormal1.4-6.5The [facility] CenterComment on above:Performed By: #### HFPFCBC #### [facility] [address] [place] [address] Dr. Albino Montesutrophils/100 WBC (Bld)55.4 %Dhdyfu01.0-75.0The [facility] CenterComment on above:Performed By: #### HFPFCBC #### [facility] [address] [place] [address] Dr. Albino MontaguePlatelet mean volume (Bld) [Entitic vol]10.5 fLNormal9.5-13.5The [facility] CenterComment on above:Performed By: #### HFPFCBC #### [facility] [address] [place] [address] Dr. Albino MontaguePLT203 103/lwWgbevj938-894Wxz [facility] CenterComment on above: Performed By: #### HFPFCBC #### [facility] [address] [place] [address] Dr. Albino MontagueRBC5.10 106/ulNormal4.70-6.10The [facility] CenterComment on above:Performed By: #### HFPFCBC #### [facility] [address] [place] [address] Dr. Albino MontagueWBC7.3 103/ulNormal4.0-11.0The [facility] CenterComment on above: Performed By: #### HFPFCBC #### [facility] [address] [place] [address] Dr. Albino Ellison [facility] GLYCOHEMOGLOBIN A1Con 46-83-4661Wjttvws [Mass/Vol]114 mg/dLNoSelect Medical Specialty Hospital - TrumbullComment on above:Performed By: #### GLTDC4D #### [facility] [address] [place] [address] Dr. Albino MontagueHbA1c (Bld) [Mass fraction]5.6 %Normal<=6.0The [facility] Comment on above:Performed By: #### PEZHA0Q #### [facility] [address] [address] [address] Albino MontagueHEALTHFAIR PROFILE (MALE)on [id number] [Mass/Vol]4.1 g/dL Normal3.5-5.0The [facility] CenterComment on above:Performed By: #### HFPFM #### [facility] [address] [place] [address] Dr. Albino MontagueAlbumin/Globulin [Mass ratio]1.4 {ratio}NormalThe [facility] CenterComment on above:Performed By: #### HFPFM #### [facility] [address] [place] [address] Dr. Albino SierraP [Catalytic activity/Vol]98 U/YBkreuo75-673Lak [facility] CenterComment on above:Performed By: #### HFPFM #### [facility] [address] [place] [address] Dr. Albino SierraT [Catalytic activity/Vol]47 U/QNmxcjj03-45Ltw [facility] CenterComment on above:Performed By: #### HFPFM #### [facility] [address] [place] [address] Dr. Albino MontagueAST [Catalytic activity/Vol]23 U/AKtfnrb24-24Xzf [facility] CenterComment on above:Performed By: #### HFPFM #### [facility] [address] [place] [address] Dr. Albino MontagueBilirubin [Mass/Vol]0.8 mg/dLNormal0.2-1.3The [facility] Comment on above:Performed By: #### HFPFM #### [facility] [address] [place] [address] Dr. Albino MontagueCalcium [Mass/Vol]8.7 mg/dLNormal8.4-10.2The [facility] Comment on above:Performed By: #### HFPFM #### [facility] [address] [place] [address] Dr. Albino MontagueChloride [Moles/Vol]103 mmol/ZEovkgh96-745Zja [facility] Comment on above:Performed By: #### HFPFM #### [facility] [address] [address] [address] Albino MontagueCHOL-HDL RATIO NORMSSumma HealthComment on above:Result Comment: 3.3 - 4.4 LOW RISK 4.4 - 7.1 AVERAGE RISK 7.1 - 11.0 MODERATE RISK >11.0 HIGH RISKPerformed By: #### HFPFM #### [facility] [address] [address] [address] Albino MontagueCholesterol [Mass/Vol]131 mg/dLNormal<=200[facility] Comment on above:Performed By: #### HFPFM #### [facility] [address] [place] [address] Dr. Albino MontagueCholesterol in HDL [Mass/Vol]38 mg/dLWright-Patterson Medical Center Comment on above:Performed By: #### HFPFM #### [facility] [address] [place] [address] Dr. Albino MontagueCholesterol in LDL [Mass/Vol]58.8 mg/dLWright-Patterson Medical CenterComment on above:Performed By: #### HFPFM #### [facility] [address] [place] [address] Dr. Albino Nettlesesterramón.total/Cholesterol in HDL [Mass ratio]3.4 {ratio} NormalMercy Health Perrysburg HospitalComment on above:Performed By: #### HFPFM #### [facility] [address] [place] [address] Dr. Albino MontagueCO2 [Moles/Vol]25.9 mmol/PLgwapq73.0-30.0[facility] Comment on above:Performed By: #### HFPFM #### [facility] [address] [place] [address] Dr. Albino MontagueCreatinine [Mass/Vol]1.10 mg/dLNormal0.66-1.25ThKettering Memorial HospitalComment on above:Performed By: #### HFPFM #### [facility] [address] [place] [address] Dr. Albino MontagueGlobulin (S) [Mass/Vol]2.9 g/dLWright-Patterson Medical CenterComment on above:Performed By: #### HFPFM #### [facility] [address] [place] [address] Dr. Albino MontagueGlucose [Mass/Vol]99 mg/yMUocmyk76-069ZoaMercy Health [facility] Hospital Comment on above:Performed By: #### HFPFM #### [facility] [address] [place] [address] Dr. Albino eNwell NORMAL> or = 60 mg/dl - LOW CARDIOVASCULAR RISK <40 mg/dl - HIGH CARDIOVASCULAR RISKWright-Patterson Medical CenterComment on above:Performed By: #### HFPFM #### [facility] [address] [place] [address] Dr. Albino MontagueLDL CALC NORMALSEE BELOWWright-Patterson Medical CenterComment on above:Result Comment: <100 mg/dl OPTIMAL 100 - 129 mg/dl NEAR OR ABOVE OPTIMAL 130 - 159 mg/dl BORDERLINE HIGH 160 - 189 mg/dl HIGH >190 mg/dl VERY HIGH Performed By: #### HFPFM #### [facility] [address] [place] [address] Dr. Albino MontaguePotassium [Moles/Vol]4.6 mmol/LNormal3.4-5.0[facility] Comment on above:Performed By: #### HFPFM #### [facility] [address] [place] [address] Dr. Albino MontagueProtein [Mass/Vol]7.0 g/dLNormal6.1-8.2[facility] Comment on above:Performed By: #### HFPFM #### [facility] [address] [place] [address] Dr. Albino MontagueSodium [Moles/Vol]138 mmol/SJouhbi079-137LggMercy Health [facility] Hospital Comment on above:Performed By: #### HFPFM #### [facility] [address] [place] [address] Dr. Albino MontagueTriglyceride [Mass/Vol]171 mg/dLCritically high<=150The [facility] CenterComment on above:Performed By: #### HFPFM #### [facility] [address] [address] [address] Albino MontagueTSH0.745 uIU/mLNormal0.470-4.680The [facility] CenterComment on above:Performed By: #### HFPFM #### [facility] [address] [address] [address] Albino MontagueUrea nitrogen [Mass/Vol]25.0 mg/dLCritically high9.0-20.0The [facility] CenterComment on above:Performed By: #### HFPFM #### [facility] [address] [address] [address] Albino MontagueUrea nitrogen/Creatinine [Mass ratio]22.7 mg/mgNoSelect Medical Specialty Hospital - TrumbullComment on above:Performed By: #### HFPFM #### [facility] [address] [address] [address] Albino MontagueVLDL CALC34.2 mg/dLNoSelect Medical Specialty Hospital - TrumbullComment on above: Performed By: #### HFPFM #### [facility] [address] [address] [address] Albino Montague Vital Signs Date TimeVital SignValuePerforming DhwmmqqvvVsgbtgrf76-47-5382 10:08-0400Hourly [facility]10-19-2023 10:08-0400[facility] to [facility]University [facility]10-19-2023 09:05-0400Hourly [facility]-2023 09:05-0400Promise to ReturnUniversity Hospitals Ahu[facility]10-19-2023 08:00-0400Hourly [facility]10-19-2023 08:00-0400Promise to ReturnUniversity Hospitals [facility]10-19-2023 07:55-0400Heart rate83 /minUniversity Hospitals Ahuja Medical Center10-19-2023 07:55-8824PoK6% (BldA) [Mass fraction]96 %[facility]10-19-2023 07:54-0400Body leaefetyrsk58.88 [degF][facility] 01-19-2023 07:54-0400Diastolic blood jxvlewnq18 mm[Hg][facility]10-19-2023 07:54-0400Mean blood egkopiwt970 mm[Hg][facility]10-19-2023 07:54-0400Systolic blood poecgzjf359 mm[Hg][facility]10-19-2023 05:35-0400Blood Pressure LocationUniversity Hospitals Ahuja Medical Center10-19-2023 05:35-0400 Body ytnbdlxkhjl89.88 [degF][facility]10-19-2023 05:35-0400Diastolic blood qpqdyqta91 mm[Hg][facility]10-19-2023 05:35-0400Heart rate88 /minUniversity Hospitals Ahu[facility] Center10-19-2023 05:35-0400Mean blood gxgkqeha36 mm[Hg][facility]10-19-2023 05:35-1660UfP5% (BldA) [Mass fraction]95 %[facility]10-19-2023 05:35-0400Systolic blood pressure 121 mm[Hg][facility]10-19-2023 00:27-0400Heart rate86 /minUniversity Hospitals Ahu[facility] Center10-19-2023 00:27-2564XcZ5% (BldA) [Mass fraction]95 %[facility]10-19-2023 00:27-0400Diastolic blood jkihtvat32 mm[Hg][facility]10-19-2023 00:27-0400Mean blood xxqykyog68 mm[Hg][facility]10-19-2023 00:27-0400Systolic blood owajuxnr411 mm[Hg][facility]10-19-2023 00:27-0400Body vlsaeflutha66.88 [degF][facility]10-18-2023 20:05-0400Mean blood nexypxug60 mm[Hg][facility]10-18-2023 20:00-0400 Blood Pressure LocationUniversity Hospitals [facility] Center10-18-2023 16:00-0400Body uojdafstkxi41.42 [degF][facility] 01-18-2023 12:15-0400Body zqkgiwvqitg12.06 [degF][facility]10-17-2023 20:00-0400Respiratory rate16 /[facility]10-17-2023 15:06-0400Respiratory rate18 /[facility]10-17-2023 12:33-0400Mean blood hukshxuc864 mm[Hg] [facility]10-17-2023 12:00-0400Mean blood wcbehbqf426 mm[Hg][facility]10-17-2023 09:05-0400 Heart rate82 /[facility] Encounters Encounter DateEncounter TypeCare ProviderFacilityStart: 20-21-1827bnfxcfmqtyarnel HancockFacility:[facility] BellevueStart: 18-64-9512cghdjpqgtdPenjya L. Bobbs Facility:[facility] evueStart: 62-90-3898bpmhxnswkiCipp C HillFacility:[facility] [place] DHStart: 02-01-1906uqjequxdzcBngb HillFacility:[facility] DHStart: 02-11-2025 End: 94-70-2297fgceivtsbmOzhyky L. BobbsFacility:[facility] BellevueStart: 06-26-2024 End: 15-27-1335uiolkflahtSaln L SchwabFacility:FTMCStart: 06-26-2024 End: 44-78-1551Lea Drop offJodi L Amy [facility] Start: 06-07-2023 End: 57-46-4349uduhzehecvXMKZPHRS D ZAHLERNot AvailableStart: 02-10-2023 End: 23-75-2950Hqwdpst encounter procedureTodd Amy Joshi [facility] Start: 02-08-2023 End: 60-18-3400Hxz Drop offJodi L Amy [facility] Start: 01-17-2023 End: 05-41-8696Qfzvgawnvm and management of inpatientSalinas Valley Health Medical Centera [facility] Start: 06-07-2022 End: 71-58-0686klwamtfhgnFC KIM E KNIGHT .Facility:Y8Mdfwm: 06-10-2021 End: 88-32-8213nyerbyjhczRK KIM E KNIGHT .Facility: Procedures DateProcedureProcedure DetailPerforming ClinicianStart: 06-78-9970GEU screening DR DORON FAIR .Comment on above:Performed By: #### HFPFM #### [facility] [address] [place] [address] Dr. Albino MontagueStart: 42-77-1983ZUY screeningDR DORON FAIR .Comment on above: Performed By: #### HFPFM #### [facility] [address] [place] [address] Dr. Albino Elmore (qualifier value)Alaa ALAHMAD Immunizations Immunization DateImmunizationNotesCare ProviderFacilityNEGATED: Highlighted row has not occurred![id number] virus vaccine, unspecified formulationMelani Reyes [id number]-SgrhfAv[facility] [place] Payers DatePayer CategoryPayerPolicy [id number] 2022Unknown [id number] [id number] [id number] 2.16.840.1.633085.3.57[id number] 2.16.840.1.190876.3.57[id number] 2.16.840.1.646676.3.57[id number] 2.16.840.1.358247.3.57[id number] 2.16.840.1.342402.3.579.2.13586-96-0169Pqwb-[id number]-ipo [id number] 2.16.840.1.601726.3.579.2.593 [id number] 2.16.840.1.290561.3.579.2.593 Social History DateTypeDetailFacilityStart: 01-16-2023 End: 27-74-7820Cyipxhm smoking statusNever smoked tobacco (finding)[facility] NorthrodolfoTobaccderik smoking statusNeverChildren[facility] FatmataevueSex Assigned At BirthMalRegency Hospital Cleveland Westexual Orientation [facility] Start: 89-22-2284MuuSorv (finding)[facility] Functional Status JyraDrssuwyrvuMrimnxNkgbmdph85-59-6000Dlkwcxcirk StatusNoKind[facility]10-17-2023Functional StatusKindred Hospital [facility] Clinical Note 06-26-2024 Note Date & IwspHvrnUbysjpsl56-78-6515 NoteNurse Consultation Note Reason for Visit Pt presents today for lab draw. Assessment/Plan 1. Wellness examination (Z00.00: Encounter for general adult medical examination without abnormal findings) 2. HLD (hyperlipidemia) (E78.5: Hyperlipidemia, unspecified) 3. Prostate cancer screening (Z12.5: Encounter for screening for malignant neoplasm of prostate) Medications atorvastatin 20 mg Tab, See Instructions meloxicam 15 mg Tab, See Instructions Allergies vancomycin (Hives) Immunizations Vaccine Date Status Comments influenza virus vaccine, inactivated - Not [facility] 01-19-2023 Note Date & MeddYchfRjjbxupj93-91-9407 Evaluation + Plan noteExtracted from: Title:Discharge NoteAuthor:Lisa BONILLA MD:01/19/23 Discharge To, Anticipated II - Home independently Discharged to - Home independently stable Discharge Diet(s): Regular (01/19/23 09:57:00) Prescriptions atorvastatin 20 mg Tab, 20 mg= 1 tab(s), Oral, Daily, 11 refills Augmentin 875 mg oral tablet, 1 tab(s), Oral, q12hr meloxicam 15 mg Tab, 15 mg= 1 tab(s), Oral, Daily, 11 refills, Still taking, not as prescribed: Takes every 2 to 3 days depending on arthritis pain Home No active home medications With When Contact Information Melani Reyes 01/24/2023 01:00 PM EDT [address] [phone] Business (1) Additional Instructions: Bursitis Cellulitis, Adult, Dsxl-rh-Fixs discharge time >30 min Extracted from:Title:Admission H & PAuthor:Lisa BONILLA MD:01/17/23 63-year-old white male with history of obesity and hyperlipidemia who present emergency room with left arm swelling, redness and tenderness. He started to see swelling of forearm and redness since Monday. He was seen yesterday by his primary physician where he was prescribed oral antibiotics but he went back to see him today because worsening of the symptoms she was sent to emergency room. This associated with redness from the hand up to above the elbow. Associated with tenderness. This is associated with warmth. He denies having fever. He denies having nausea vomiting. No history of injury or trauma. No history of cat or dog bite. No history of insect bite. No history of diabetes. A/P 1. Cellulitis of arm (L03.119: Cellulitis of unspecified part of limb) Inpatient admission Patient will require more than 2 days in the hospital Blood cultures CBC with differential daily Unasyn 3 g every 6 hours IV 2. Bursitis (M71.9: Bursopathy, unspecified) As above 3. Leukocytosis (D72.829: Elevated white blood cell count, unspecified) CBC with differential daily 4. Hyperlipidemia (E78.5: Hyperlipidemia, unspecified) Resume statin 5. Obesity (E66.9: Obesity, unspecified) Lifestyle modification DVT prophylaxis Lovenox daily Orders: acetaminophen, 650 mg = 2 tab(s), Tab, Oral, q6hr PRN Pain, Routine, Start date 01/17/23 12:12:00 EDT, 01/17/23 12:12:00 EDT Al hydroxide/Mg hydroxide/simethicone, 30 mL, Susp-Oral, Oral, q6hr PRN Indigestion, Routine, Startdate 01/17/23 12:12:00 EDT ampicillin-sulbactam + Sodium Chloride 0.9% intravenous solution 100 mL, 3 gram = 1 EA, Injection, IV Piggyback, q6hrFT, Routine, Start date 01/17/23 12:00:00 EDT, 200 mL/hr, Infuse over 30 minute(s) enoxaparin, 40 mg = 0.4 mL, Injection, SubCutaneous, Daily for 30 day(s), Stop date 02/17/23 8:59:00 EST, Routine, Start date 01/18/23 9:00:00 EDT, 01/17/23 12:12:00 EDT magnesium hydroxide, 30 mL, Susp-Oral, Oral, q6hr PRN Constipation, Routine, Start date 01/17/23 12:12:00 EDT ondansetron, 4 mg = 2 mL, Injection, IV Push, q6hr PRN Nausea, Routine, Start date 01/17/23 12:12:00 EDT, 01/17/23 12:12:00 EDT zolpidem, 5 mg = 1 tab(s), Tab, Oral, Bedtime PRN Sleep, Routine, Start date 01/17/23 12:12:00 EDT Elevate Head of Bed Notify Provider Vital Signs Notify Provider Vital Signs Place in Status Regular Diet Resuscitation Status - Full Saline Lock Convert From IV Up ad Christin Vital Signs Weight Extracted from:Title:ED NoteAuthor:Nay Corona, Liat HDate:01/17/23 1. Cellulitis of arm (L03.11 9: Cellulitis of unspecified part of limb) 2. Bursitis (M71.9: Bursopathy, unspecified) Orders: piperacillin-tazobactam + Sodium Chloride 0.9% intravenous solution 50 mL, 3.375 gm = 1 EA, IV Piggyback, q6hrFT, STAT, Start date 01/17/23 9:17:00 EDT, 100 mL/hr, Infuse over 30 minute(s), 01/17/23 9:17:00 EDT vancomycin + Generic Diluent 300 mL, Reason for Vancomycin: MRSA colonization or infection, 1,500 mg = 300 mL, Soln-IV, IV Piggyback, Once, Stop date 01/17/23 10:00:00 EDT, Routine, Start date 01/17/23 10:00:00 EDT, Infuse over 90 minute(s) Automated Diff Basic Metabolic Panel Blood Culture Charcoal Blood Culture Charcoal CBC w/ Auto Diff ED Physician consult Hospitalist for continued care eGFR Lactic Acid Future Appointments Appointment Date:01/24/2023 01:00:00 PM Scheduled Provider:Melani Lazaro Location:[facility] Appointment Type: Hospital Follow Up w/TCM [facility] Hospital Discharge instructions 01-19-2023 Note Date & UymgBewvHjlaeuut06-67-2642 Hospital Discharge instructions Patient Education 01/19/2023 09:57:36 Bursitis Bursitis Bursitis is inflammation and irritation of a bursa, which is a small fluid- filled sac that cushionsand protects the joints. These sacs are located between bones and muscles, bones and muscle attachments, or bones and skin areas that are next to bones. A bursa protects those structures from the wear and tear that results from frequent movement. If the bursa becomes irritated, it can fill with extra fluid. Bursitis is most common near joints, especially the knees, elbows, hips, and shoulders. What are the causes? This condition may be caused by: An injury like a direct hit to a joint area, such as falling on your knee or elbow. Overuse of a joint (repetitive stress). Infection. This can happen if bacteria get into a bursa through a cut or scrape near a joint. Diseases that cause joint inflammation, such as gout and rheumatoid arthritis. What increases the risk? You are more likely to develop this condition if: You have a job or hobby that involves a lot of repetitive stress on your joints. You have a condition that weakens your body's defense system (immune system), such as diabetes, cancer, or HIV. You do any of these often: ?Lift and reach overhead. ?Kneel or lean on hard surfaces. ?Participate in physical activities that include repetitive motion, like running or walking. What are the signs or symptoms? Common symptoms of this condition include: Pain that gets worse when you move the affected body part or use it to support your body weight. Inflammation. Stiffness. Other symptoms include: Redness. Swelling. Tenderness. Warmth. Pain that continues after rest. Fever or chills. These may occur in bursitis that is caused by infection. How is this diagnosed? This condition may be diagnosed based on: Your medical history and a physical exam. Imaging tests, such as an MRI or X-ray. Draining fluid from the bursa to test it for infection or gout. Blood tests to rule out other causes of inflammation. How is this treated? This condition can usually be treated at home with rest, ice, applying pressure (compression), and raising the body part that is affected (elevation). This is called RICE therapy. For mild bursitis, RICE therapy may be all you need. Other treatments may include: Kqpq-szr-zqbbvhv medicines to relieve pain and inflammation. Injections of anti-inflammatory medicines. These medicines may be injected into and around the areaof bursitis. Draining of fluid from the bursa to relieve pain and improve movement. Antibiotic medicine if there is an infection. Using a splint, brace, elastic wrap, pads, or walking aid, such as a cane. Physical or occupational therapy if you continue to have pain or limited movement. Your physical oroccupational therapist can help determine what may have caused or contributed to the bursitis. Thiswill help avoid further episodes. Surgery to remove a damaged or infected bursa. This may be needed if other treatments have not worked. Follow these instructions at home: Medicines Take toia-xmn-bpzibin and prescription medicines only as told by your health care provider. If you were prescribed an antibiotic medicine, take it as told by your health care provider. Do notstop using the antibiotic even if you start to feel better. Managing pain, stiffness, and swelling Raise (elevate) the injured area above the level of your heart while you are sitting or lying down. If directed, put ice on the affected area. To do this: ?Put ice in a plastic bag. ?Place a towel between your skin and the bag, or between your splint or brace and the bag. ?Leave the ice on for 20 minutes, 2 3 times a day. ?Remove the ice if your skin turns bright red. This is very important. If you cannot feel pain, heat, or cold, you have a greater risk of damage to the area. If directed, apply heat to the affected area as often as told by your health care provider. Use theheat source that your health care provider recommends, such as a moist heat pack or a heating pad. ?Place a towel between your skin and the heat source. ?Leave the heat on for 20 30 minutes. ?Remove the heat if your skin turns bright red. This is especially important if you are unable to feel pain, heat, or cold. You may have a greater risk of getting burned. General instructions Rest the affected area as told by your health care provider. Avoid activities that make pain worse. Use splints, braces, pads, elastic wrap, or walking aids as told by your health care provider. Keep all follow-up visits. This is important. Preventing future episodes Wear knee pads if you kneel often. Wear sturdy running or walking shoes that fit well. Take breaks regularly from repetitive activity. Warm up by stretching before doing any activity that takes a lot of effort. Maintain a healthy weight or lose weight as recommended by your health care provider. If you need help doing this, ask your health care provider. Exercise regularly. Start any new physical activity gradually. Work with your physical or occupational therapist and your health care provider to help determine what caused the bursitis. Contact a health care provider if: You have a fever or chills. Your symptoms do not get better with treatment. You have pain or swelling that gets worse, or it goes away and then comes back. You have pus draining from the affected area. You have redness around the affected area. The affected area is warm to the touch. Summary Bursitis is inflammation and irritation of a bursa, which is a small fluid- filled sac that cushionsand protects the joints. Rest the affected area as told by your health care provider. Avoid activities that make pain worse. This condition can usually be treated at home with rest, ice, applying pressure (compression), and raising the body part that is affected (elevation). This is called RICE therapy. This information is not intended to replace advice given to you by your health care provider. Make sure you discuss any questions you have with your health care provider. Document Revised: 03/15/2022 Document Reviewed: 03/15/2022 [employer] Patient Education 2022 [employer]. 01/19/2023 09:57:34 Cellulitis, Adult, Wekl-[id number] Cellulitis, Adult Cellulitis is a skin infection. The infected area is often warm, red, swollen, and sore. It occurs most often in the arms and lower legs. It is very important to get treated for this condition. What are the causes? This condition is caused by bacteria. The bacteria enter through a break in the skin, such as a cut, burn, insect bite, open sore, or crack. What increases the risk? This condition is more likely to occur in people who: Have a weak body defense system (immune system). Have open cuts, eckert, bites, or scrapes on the skin. Are older than 60 years of age. Have a blood sugar problem (diabetes). Have a long-lasting (chronic) liver disease (cirrhosis) or kidney disease. Are very overweight (obese). Have a skin problem, such as: ?Itchy rash (eczema). ?Slow movement of blood in the veins (venous stasis). ?Fluid buildup below the skin (edema). Have been treated with high-energy rays (radiation). Use IV drugs. What are the signs or symptoms? Symptoms of this condition include: Skin that is: ?Red. ?Streaking. ?Spotting. ?Swollen. ?Sore or painful when you touch it. ?Warm. A fever. Chills. Blisters. How is this diagnosed? This condition is diagnosed based on: Medical history. Physical exam. Blood tests. Imaging tests. How is this treated? Treatment for this condition may include: Medicines to treat infections or allergies. Home care, such as: ?Rest. ?Placing cold or warm cloths (compresses) on the skin. Hospital care, if the condition is very bad. Follow these instructions at home: Medicines Take kzll-lul-tsnkfmy and prescription medicines only as told by your doctor. If you were prescribed an antibiotic medicine, take it as told by your doctor. Do not stop taking it even if you start to feel better. General instructions Drink enough fluid to keep your pee (urine) pale yellow. Do not touch or rub the infected area. Raise (elevate) the infected area above the level of your heart while you are sitting or lying down. Place cold or warm cloths on the area as told by your doctor. Keep all follow-up visits as told by your doctor. This is important. Contact a doctor if: You have a fever. You do not start to get better after 1 2 days of treatment. Your bone or joint under the infected area starts to hurt after the skin has healed. Your infection comes back. This can happen in the same area or another area. You have a swollen bump in the area. You have new symptoms. You feel ill and have muscle aches and pains. Get help right away if: Your symptoms get worse. You feel very sleepy. You throw up (vomit) or have watery poop (diarrhea) for a long time. You see red streaks coming from the area. Your red area gets larger. Your red area turns dark in color. These symptoms may represent a serious problem that is an emergency. Do not wait to see if the symptoms will go away. Get medical help right away. Call your local emergency services (911 in the [place] Do not drive yourself to the hospital. Summary Cellulitis is a skin infection. The area is often warm, red, swollen, and sore. This condition is treated with medicines, rest, and cold and warm cloths. Take all medicines only as told by your doctor. Tell your doctor if symptoms do not start to get better after 1 2 days of treatment. This information is not intended to replace advice given to you by your health care provider. Make sure you discuss any questions you have with your health care provider. Document Revised: 12/30/2021 Document Reviewed: 12/30/2021 [employer] Patient Education 2022 [employer]. Follow Up Care 01/17/2023 09:02:47 With:Melani Reyes Address: [address] [place] [address] Business (1) When:01/24/2023 13:00:00 [facility] Evaluation + Plan note Note Date & TypeNoteFacilityEvaluation + Plan note Future Appointments Appointment Date:02/13/2023 07:40:00 AM Scheduled Provider:Alan Machado MD Location:[facility] Appointment Type:[facility] Diagnostic Tests Pending * Clostridium Difficile PCR 02/08/23 [facility] Evaluation + Plan note Note Date & TypeNoteFacilityEvaluation + Plan note Future Appointments Appointment Date:02/13/2023 07:40:00 AM Scheduled Provider:Alan Machado MD Location:[facility] Appointment Type:[facility] Evaluation + Plan note Note Date & TypeNoteFacilityEvaluation + Plan note Future Appointments Appointment Date:02/10/2025 07:00:00 AM Scheduled Provider:Alan Machado MD Location:[facility] Appointment Type:[facility] Hospital course Narrative Note Date & TypeNoteFacilityHospital course Narrative No data available for this section [facility] Hospital Discharge instructions Note Date & TypeNoteFacilityHospital Discharge instructions No data available for this section [facility] Progress note Note Date & TypeNoteFacilityProgress note No data available for this section [facility] Summary Purpose Family History No Family History Records Found No data available for this section No data available for this section No data available for this section No Family History Records FoundNo Family History Records FoundNo Family History Records FoundNo Family History Records FoundNo Family History Records FoundNo Family History Records Found No data available for this section No Family History Records FoundNo Family History Records Found Advance Directives No Advanced Directives Records FoundNo Advanced Directives Records FoundNo Advanced Directives Records FoundNo Advanced Directives Records FoundNo Advanced Directives Records FoundNo Advanced Directives Records FoundNo Advanced Directives Records FoundNo Advanced Directives Records FoundNo Advanced Directives Records Found Additional Source Comments (unrecognized sect ion and content) No Status Records FoundNo Status Records FoundNo Status Records FoundNo Status Records FoundNo Status Records FoundNo Status Records FoundNo Status Records FoundNo Status Records FoundNo Status Records Found INFORMATION SOURCE (unrecogn ized section and content) DATE CREATED AUTHOR 06/09/2022 [facility] DATE CREATED AUTHOR AUTHOR'S ORGANIZ ATION 06/08/2023 [facility] DATE CREATED AUTHOR AUTHOR'S ORGANIZ ATION 06/28/2024 [facility] DATE CREATED AUTHOR AUTHOR'S ORGANIZ ATION 02/12/2025 [facility] DATE CREATED AUTHOR AUTHOR'S ORGANIZ ATION 02/13/2025 [facility] Patient Care team informatio n (unrecognized section and content) Personnel Name: Melani Lazaro Address: Address: [address] [place] [address]- Personnel Name: Melani Lazaro Address: Address: [address] [place] [address]- Personnel Name: Melani Lazaro Address: Address: [address] [place] [address]- Personnel Name: Alan Machado MD Address: [address] [place] [address]- Adility: FOR RECORDS PERTAINING TO PATIENTS WHO ARE OR HAVE BEEN ENROLLED IN A CHEMICAL DEPENDENCY/SUBSTANCEABUSE PROGRAM, SOME INFORMATION MAY BE OMITTED. This clinical summary was aggregated from multiple sources. Caution should be exercised in using it in the provision of clinical care. This summary normalizes information from multiple sources, and as a consequence, information in this document may materially change the coding, format and clinical context of patient data. In addition, data may be omitted in some cases. CLINICAL DECISIONS SHOULD BE BASED ON THE PRIMARY CLINICAL RECORDS. [facility] [employer] [facility]. provides no warranty or guarantee of the accuracy or completeness of information in this document.
--- NOTE | 2025-03-07 10:14 | XR_ITS ---
The [address] [address] Patient Name: NEO KEMP MRN: [id number] date: 1960 Sex: M Assigned Patient Location: RAD Current Patient Location: [facility] Accession/Order Number: [id number] Exam Date: 03/07/2025 10:20 Report Date: 03/07/2025 10:52 At the request of: ENEIDA HURLEY DPDeandra Procedure: XR ankle RT min 3V RIGHT ANKLE - 3 views CLINICAL HISTORY: Right ankle pain for one month. COMPARISON: None FINDINGS: Mild soft tissue swelling. Ankle mortise appears intact with mild degenerative change. No acute bony process. XR/XR ankle RT min 3V IMPRESSION: MILD SOFT TISSUE SWELLING WITH DEGENERATIVE CHANGES OF THE ANKLE MORTISE. NO ACUTE BONY PROCESS IS SEEN. Impression dictated by: Rafiq Schaffer Jr.OWilmer 03/07/2025 10:52 AM Dictation Location: [place] [address] Electronically authenticated by: [id number] Y Date: 03/07/2025 10:52
== END 2025-03-07 10:04 | disposition home or self-care (01) ==
PROVIDERS: PCP Student in an Organized Health Care Education/Training Program; Visit Provider Podiatrist Foot & Ankle Surgery
DX: M25.571 Pain in right ankle and joints of right foot (principal); R22.41 Localized swelling, mass and lump, right lower limb
CPT/HCPCS: 73610